=== PATIENT | male | born 1965 | race Caucasian/White ===

== ENCOUNTER → 2017-04-03 | Day surgery (SDC) | payer BC ==
[2017-03-12 12:16] VITALS: Ht 172.7 cm; Wt 88.6 kg
--- NOTE | 2017-03-13 12:29 | PAT Medication Instructions ---
Service Date Mar 13, 2017. Current Home Medication List Hydrochlorothiazide (Hctz), 25 MG PO QAM Ibuprofen (Advil), 800 MG PO BID PRN for Pain Lisinopril (Zestril), 5 MG PO QAM Oxycodone/Acetaminophen 5MG/325MG (Percocet 5MG/325MG), 1-2 TAB PO Q4H PRN for PAIN PER SCALE Medication Instructions For Your Scheduled Surgery - Check with surgeon for instructions: Ibuprofen (Advil), 800 MG PO BID PRN for Pain - Hold the following medications the morning of surgery: Lisinopril (Zestril), 5 MG PO QAM Hydrochlorothiazide (Hctz), 25 MG PO QAM - Take the following medications the morning of surgery with a sip of water: Oxycodone/Acetaminophen 5MG/325MG (Percocet 5MG/325MG), 1-2 TAB PO Q4H PRN for PAIN PER SCALE (okay to take up to 4 hours prior to surgery if needed) - Take the following medications as scheduled the night before surgery: Oxycodone/Acetaminophen 5MG/325MG (Percocet 5MG/325MG), 1-2 TAB PO Q4H PRN for PAIN PER SCALE (if needed) If you have any questions please call us at [phone] or [phone] or [phone]
[2017-03-13 12:57] LABS: HEMATOCRIT 47.4 % (42-52); MEAN CELL VOLUME 87.8 fL (80-100); MEAN CORPUSCULAR HEMOGLOBIN 31.5 pg (25-34); MEAN CORPUSCULAR HGB CONC 35.9 g/dl (32-36); MEAN PLATELET VOLUME 10.3 fL (7.4-10.4); PLATELET COUNT 210 K/uL (130-400); WHITE BLOOD COUNT 4.86 K/uL (4.8-10.8)
[2017-03-13 13:07] LABS: PARTIAL THROMBOPLASTIN RATIO 1.1; PROTHROMBIN TIME (PATIENT) 10.8 SECONDS (9.0-12.0)
[2017-03-13 14:16] LABS: BUN/CREATININE RATIO 12.5 (10-20); CALCIUM 9.7 mg/dl (8.5-10.1); CREATININE 1.1 mg/dl (0.60-1.40); POTASSIUM 4.2 mmol/L (3.5-5.1)
[~2017-04-03] VITALS: Ht 172.7 cm; Wt 88.6 kg
[~2017-04-03] MED LIST: ACETAMINOPHEN 1000 MG/100 ML IV IV ONE; ATROPINE SULFATE 0.1 MG/ML 5ML SYR IV PRN; BUPIVACAINE/EPINEPHRINE 0.25% 10 ML VIAL ONE; CEFAZOLIN 2000 MG/60 ML D5W IV SCH; DEXAMETHASONE SOD INJ 4 MG/ML VIAL ONE; EpHEDrine SULFATE INJ 50 MG/ML AMP IV PRN; EpINEphrine INJ 1MG/ML AMP 1 MG/ML AMP ONE; FENTANYL CITRATE INJ 50 MCG/1 ML 2 ML VIAL IV PRN; FENTANYL CITRATE INJ 50 MCG/1 ML 2 ML VIAL ONE; HYDR25TA4 PO; HYDROmorphone INJ 1 MG/ML SYR IV PRN; IBUP-1050 PO; KETO10TA PO; LACTATED RINGER'S 1000ML 1,000 ML IV SCH; LIDOCAINE HCL 1% MPF 2 ML VIAL ONE; LIDOCAINE HCL 2% 2 ML VIAL (20MG/ML) ONE; LISI-729 PO; MIDAZOLAM HCL 1 MG/ML 2ML VIAL ONE; ONDANSETRON INJ 2 MG/ML 2 ML VIAL IV PRN; ONDANSETRON INJ 2 MG/ML 2 ML VIAL ONE; OXYC-57 PO; OXYCODONE/ACETAMINOPHEN 5-325 TAB PO PRN; PROMETHAZINE HCL INJ 12.5 MG in SODIUM CHLORIDE 0.9% 50ML 50 ML IV PRN; PROPOFOL IV EMULSION 10 MG/ML 20 ML VIAL IV ONE; ROPIVACAINE 0.5% 5 MG/ML 30 ML VIAL ONE; SODIUM CHLORIDE 0.9% 1000ML 1,000 ML IV SCH
--- NOTE | 2017-04-03 09:43 | History & Physical Bridge - SC ---
H&P Re-Evaluation Bridge Note: I have examined the patient, reviewed the History & Physical and in the interval since the performance of the History & Physical I have noted the following changes of clinical significance: No changes noted
--- NOTE | 2017-04-03 14:39 | Discharge Instructions-SurgCtr ---
Discharge Instructions Date of Service Apr 03, 2017. Visit Reason for Visit: Right Shoulder Chronic Rotator Cuff Tear Discharge Discharge Diagnosis / Problem: SAME ABOVE Discharge Goals Goal(s): Decrease discomfort, Improve function Medications Stopped Medications Name(s): no blood thinners Restart Stopped Medication(s): MAY RESTART ANY BLOOD THINNER 04/03/2017 Activity Recommendations Activity Limitations: as noted below Lifting Limitations: until after follow-up appointment Exercise/Sports Limitations: until after follow-up appointment Shower/Bathe: tomorrow Anesthesia . Post Anesthesia Instructions: If you have had General Anesthesia or IV Sedation: * Do not drive today. * Resume driving when surgeon permits. * Do not make important decisions or sign legal documents today. * Call surgeon for: 1. Temperature elevations greater than 101 degrees F. 2. Uncontrollable pain. 3. Excessive bleeding. 4. Persistent nausea and vomiting. 5. Medication intolerance (nausea, vomiting or rash). * For nausea and vomiting use only clear liquids such as: tea, soda, bouillon until nausea subsides, then gradually increase diet as tolerated. * If you have any concerns or questions, call your surgeon's office. If physician is unavailable and it is an emergency, call 911 or go to the nearest emergency room. . Instructions / Follow-Up Instructions / Follow-Up MEDICATIONS: * Resume previous medications unless instructed otherwise by your surgeon. * Always take pain medication on a full stomach or with food to avoid upset stomach. * Do not drink alcohol or drive while taking narcotics. * Ibuprofen or Tylenol may be taken if narcotic not needed. SPECIAL CARE INSTRUCTIONS: __ None _X_ Keep extremity elevated and iced x 48 hours; apply ice 20-30 minutes 8-10 times/day. May remove at night. __ Sling __24 hrs/day __ Remove at night _X_ Shoulder Immobilizer (MAY REMOVE AFTER 48 HOURS ONLY TO SHOWER AND FOR THERAPY) _X_ 24 hrs/day __ Remove at night _X_ Dressing __ Maintain until seen in office, may shower with plastic over site _X_ Remove dressings in 24-48 hours and then may shower _X_ Cover incisions with band-aids after showering __ Do not remove steri-strips Call physician if chills or temperature rises above 102 degrees or pain unrelieved by prescribed pain medications at . . Diet Recommendations Home Diet: no limitations Fluid Restriction: None Procedures Procedures Performed: Right Shoulder Arthroscopy With Superior Capsular Reconstruction, Acromioplasty Pending Studies Studies pending at discharge: no Work Instructions Return To Work: after follow-up Lifting Limitations: NO LIFTING WITH RIGHT ARM Medical Emergencies . Who to Call and When: Medical Emergencies: If at any time you feel your situation is an emergency, please call 911 immediately. . Non-Emergent Contact Non-Emergency issues call your: Primary Care Provider Call Non-Emergent contact if: you have a fever, temperature is above 101.5 . . "Provider Documentation" section prepared by Gael Sosa. .
--- NOTE | 2017-04-03 14:41 | OPERATIVE REPORT ---
DATE OF OPERATION: 04/03/2017 PREOPERATIVE DIAGNOSIS: Irreparable right rotator cuff tear. POSTOPERATIVE DIAGNOSIS: Same. PROCEDURE: Right shoulder diagnostic arthroscopy with extensive debridement, acromioplasty and superior capsular reconstruction. SURGEON: Dr. Anand Enriquez. MANAGER CENTER: Edd Sosa PA-C, whose assistance was necessary for positioning the arm and helping with instrumentation. ANESTHESIA: General with a right interscalene nerve block. COMPLICATIONS: None. CONDITION: Stable to PACU. This case took increased time from a regular rotator cuff repair type case. I did do a complete superior capsular reconstruction. It took me more than twice as long as a rotator cuff repair. All scarring from previous surgery had to be removed as well. INDICATIONS: Sedrick is a pleasant 52-year-old male who had a rotator cuff repair over 10 years ago. He recently fell and sustained an injury to his right shoulder. He underwent an attempted revision rotator cuff repair at an outside institution about 6 months ago. That physician said he was unable to repair the cuff. He then presented to my office for a second opinion. I offered him a superior capsular reconstruction. Given his age, he elected to proceed with the procedure. DESCRIPTION OF PROCEDURE: On 04/03/2017, he arrived at [facility] for the above procedures. He was seen in the preoperative holding area and the operative extremity was identified and signed. He was given a preoperative antibiotic and a right interscalene nerve block. He was taken back to the operating room, laid on the table in supine position and put under general anesthesia. He was then put into the beachchair position. The right shoulder was prepped and draped in sterile fashion. Time-out was done and the patient and operative extremity was properly identified. A scope was introduced into the posterior portal. Diagnostic arthroscopy showed minor cartilage damage to the superior aspect of the humeral head. The glenoid looked okay. There was a little fraying of the labrum. The biceps tendon was absent from previous arthroscopy. There was a large tear of the rotator cuff. The scope was then put into the subacromial space. A lateral portal was made. A shaver was used to do a complete subacromial and subdeltoid bursectomy. There was what appeared to be an incomplete acromioplasty from previous procedure. There was still a large subacromial spur in the anterior medial aspect. Bur was used to complete an acromioplasty. Time was spent then removing all bursal tissue and really get a good look at the rotator cuff. An attempt was made at a repair, but I was unable to bring it down to the footprint. At this point, I decided to do a superior capsular reconstruction. Significant time was spent doing extensive debridement, debriding all scar tissue from the previous 2 procedures. Scar tissue was removed from the subacromial and subdeltoid spaces. The superior aspect of the glenoid was then exposed. A ring curet was used to debride the tissue back to bleeding bone. Two 3.0-mm SutureTaks were placed along the glenoid margin. Two 4.75-mm BioComposite SwiveLock suture anchors loaded with FiberTapes were placed at the articular margin on the greater tuberosity. Distance between anchors was then measured and an ArthroFlex graft was then measured and cut. A PassPort cannula was then used laterally. All sutures were passed out through the PassPort cannula and then through the graft. The graft was then slid into position on the glenoid. The glenoid sutures were then tied and cut. The FiberTapes were then brought down the 2 lateral row SwiveLock suture anchors. This gave a knotless SpeedBridge configuration on the lateral side. The graft was under good tension and multiple pictures were taken. Two margin convergence sutures were placed between the graft and the infraspinatus at the lateral aspect. The arm was brought through a full range of motion and I was happy with the tension and the overall repair. The wound was then irrigated and portal sites were closed with 3-0 nylon. He was then placed in a soft dressing and abduction arm sling. He was then extubated, transferred to a [facility] and taken to the postanesthesia care unit in stable condition. He tolerated the procedure well. I attest to the content of the Intraoperative Record and any orders documented therein. Any exceptions are noted below. KISHORE
[2017-04-03 15:12] VITALS: TEMP 36.1
--- NOTE | 2017-04-03 15:37 | [facility] Post Operative Brief Note ---
Immediate Operative Summary Operative Date Apr 03, 2017. Pre-Operative Diagnosis Post-Operative Diagnosis same Procedure(s) Performed Right Shoulder Arthroscopy With Superior Capsular Reconstruction, Acromioplasty Surgeon Dr. Devin Enriquez Import/Export Clerk Surgeon(s) Edd Sosa PA-C Estimated Blood Loss 20ml Findings as above Specimens NONE PER SURGEON Complication(s) None Disposition Recovery Room / PACU
--- NOTE | 2017-04-03 15:39 | Anesthesia Progress Nt - [facility] ---
Anesthesia Post Op Note Date & Time Apr 03, 2017 at 15:37 Vital Signs Pain Intensity: 0 Vital Signs Past 12 Hours Date Time Temp Pulse Resp B/P (MAP) Pulse Ox O2 Delivery O2 Flow Rate FiO2 04/03/17 15:12 36.1 75 18 144/86 (105) 97 Room Air 04/03/17 15:10 138/88 04/03/17 15:07 71 14 04/03/17 15:07 71 14 96 04/03/17 15:06 36.1 97 Room Air 04/03/17 15:06 77 20 97 04/03/17 15:06 76 20 04/03/17 15:05 140/91 04/03/17 15:01 72 16 100 04/03/17 15:01 73 16 04/03/17 15:00 135/86 04/03/17 14:56 65 13 100 04/03/17 14:56 65 13 04/03/17 14:55 137/85 04/03/17 14:52 68 14 100 04/03/17 14:52 68 14 04/03/17 14:50 139/81 04/03/17 14:47 67 13 04/03/17 14:47 67 13 100 04/03/17 14:45 137/87 04/03/17 14:42 69 14 04/03/17 14:42 69 14 100 04/03/17 14:40 146/92 04/03/17 14:37 70 14 100 04/03/17 14:37 70 14 04/03/17 14:35 156/95 04/03/17 14:32 77 04/03/17 14:32 77 157/99 98 04/03/17 14:32 36.4 75 16 157/99 100 Mask 6 04/03/17 11:17 0 04/03/17 11:17 0 04/03/17 11:12 67 04/03/17 11:12 67 0 100 04/03/17 11:11 66 0 100 04/03/17 11:11 66 04/03/17 11:10 66 0 100 04/03/17 11:10 67 04/03/17 11:06 67 0 100 04/03/17 11:06 65 0 100 04/03/17 11:05 124/76 04/03/17 11:00 139/79 04/03/17 10:56 68 04/03/17 10:56 67 0 100 04/03/17 10:55 135/79 04/03/17 10:51 68 0 99 04/03/17 10:51 67 0 99 04/03/17 10:50 130/77 04/03/17 10:45 132/83 04/03/17 10:41 67 12 99 04/03/17 10:41 68 04/03/17 10:40 69 12 99 04/03/17 10:40 69 04/03/17 10:37 71 04/03/17 10:37 70 8 99 04/03/17 10:35 128/84 04/03/17 10:32 67 10 98 04/03/17 10:32 67 6 99 04/03/17 10:29 136/91 04/03/17 10:22 66 04/03/17 10:22 66 96 04/03/17 09:24 36.8 72 16 137/99 (112) 97 Room Air Notes Mental Status: alert / awake / arousable, participated in evaluation Pt Amnestic to Procedure: Yes Nausea / Vomiting: adequately controlled Pain: adequately controlled Airway Patency, RR, SpO2: stable & adequate BP & HR: stable & adequate Hydration State: stable & adequate Anesthetic Complications: no major complications apparent Doing well. Pain controlled with ISB. VSS
[2017-04-03 15:46] VITALS: BP 138/87; PULSE 73; O2SAT 98
== END | disposition home or self-care (01) ==
LOC: X.SURG 09:05
PROVIDERS: ATTEND Orthopaedic Surgery
DX: S43.421A Sprain of right rotator cuff capsule, initial encounter (principal); W19.XXXA Unspecified fall, initial encounter; I10 Essential (primary) hypertension; Z82.49 Family history of ischemic heart disease and other diseases of the circulatory system; Z82.3 Family history of stroke

== ENCOUNTER 2022-12-20 06:13 | Observation (INO) ==
--- NOTE | 2022-11-13 13:19 | PAT Medication Instructions ---
Medication Instructions Date of Service November 13, 2022 Home Medications hydrochlorothiazide 25 mg tablet 25 mg PO QAM calcium carb-ergocalciferol (vit D2) 600 mg calcium-200 unit tablet 1 tab PO QAM celecoxib 200 mg capsule (Celebrex) 200 mg PO BID PRN Pain lisinopril 10 mg tablet 10 mg PO QAM omega-3 fatty acids 500 mg capsule 500 mg PO QAM rivaroxaban 20 mg tablet (Xarelto) 20 mg PO QAM ASK your surgeon for instructions celecoxib 200 mg capsule (Celebrex) 200 mg PO BID PRN Pain ASK your prescriber and surgeon rivaroxaban 20 mg tablet (Xarelto) 20 mg PO QAM (in order for spinal anesthesia, rivaroxaban/Xarelto needs to be stopped 72 hours/3 days before surgery. Please check if okay with doctor that prescribes this to you) STOP taking 2 weeks before surgery (or as soon as possible if surgery is within 2 weeks) omega-3 fatty acids 500 mg capsule 500 mg PO QAM DO NOT take the morning of surgery hydrochlorothiazide 25 mg tablet 25 mg PO QAM calcium carb-ergocalciferol (vit D2) 600 mg calcium-200 unit tablet 1 tab PO QAM lisinopril 10 mg tablet 10 mg PO QAM Other Notes If you have any questions please call us at [phone] or [phone] or [phone] or [phone]
--- NOTE | 2022-11-19 12:29 | Anesthesiology Consultation ---
Date of Service November 19, 2022 Assessment & Plan (1) Encounter for pre-operative examination: - COVID screening: Per assessment on 11/19: No known COVID-19 positive contacts or current COVID-19 related symptoms. Travel screen negative. At surgeon discretion if preop Covid testing being done. - S/P ACDF C5-T1 with anterior instrumentation (06/28/14): Grade 1 view, MAC#3, ETT 7.5 at [facility] (scope patch used- per patient, denies hx of PONV) - Outpatient joint assessment: Pt currently scheduled for inpatient pathway. If surgeon requests review for outpatient joint pathway, patient is an acceptable candidate for outpatient joint program from anesthesia standpoint pending surgeon's office assessment that patient is motivated, has good support and completes Same Day Joint Program preop requirements. - Xarelto instructions: patient made aware that in order for spinal anesthesia, Xarelto needs to be held 72 hours/3 days prior to surgery. Patient voiced understanding/will check if okay with prescriber. Chart Review Chart Review: Acceptable Risk for Surgery and Patient seen in Pre Admission Testing Teaching & Discussion Pre-Anesthesia Teaching/Discussion Notes: Instructed NPO after midnight before surgery,except medications with 15 cc of water. Medication instructions provided according to the PAT guidelines. History Surgery Operation Date: 12/20/22 10:30 Proposed Procedures p Right Total Knee Arthroplasty - Anand Enriquez DO Height/Weight Height: 5 ft 9 in Weight: 91.9 kg Allergies Allergy/AdvReac Type Severity Reaction Status Date / Time No Known Allergies Allergy Unverified 11/13/22 08:57 Medications Home Medications Medication Instructions Recorded Confirmed Last Taken hydrochlorothiazide 25 mg tablet 25 mg PO QAM 09/29/19 11/13/22 Unknown calcium carb-ergocalciferol (vit 1 tab PO QAM 11/13/22 11/13/22 Unknown D2) 600 mg calcium-200 unit tablet celecoxib 200 mg capsule (Celebrex) 200 mg PO BID PRN Pain 11/13/22 11/13/22 Unknown lisinopril 10 mg tablet 10 mg PO QAM 11/13/22 11/13/22 Unknown omega-3 fatty acids 500 mg capsule 500 mg PO QAM 11/13/22 11/13/22 Unknown rivaroxaban 20 mg tablet (Xarelto) 20 mg PO QAM 11/13/22 11/13/22 Unknown tramadol 50 mg tablet 50 mg PO Q8H PRN pain #30 tabs 11/19/22 11/19/22 Unknown Past Medical History Medical History Back spasm occasional Borderline hyperlipidemia History of COVID-19 07/2021- congestion, headache HTN (hypertension) Hx of deep venous thrombosis right calf (01/2022) taking Xarelto possible lupus anticoagulant Hx of irritable bowel syndrome stress related Knee pain right (hx cortisone injections, most recent 08/2022, Dr. Tarango) Osteoarthritis PMR (polymyalgia rheumatica) follows with Dr. Tarango ([facility]) Exercise / Class Metabolic Activity II 4-5 Yardwork/Stairs/Walk up hill (one FS (no CP, no SOB)) Past Family History Family History Other No family history of adverse response to anesthesia Past Surgical History Surgical History History of surgery on arm perforated artery left forearm, grafted w/ vein from right ankle Hx of anterior cruciate ligament surgery right Hx of cervical discectomy ACDF C5-T1 with anterior instrumentation (06/28/14): Grade 1 view, MAC#3, ETT 7.5 at [facility] (scope patch used) Full ROM per patient Hx of colonoscopy Hx of repair of rotator cuff right X 3 Past Anesthesia History No Hx of Anesthesia Complications Father- "slow to wake", surgery/anesthesia issues r/t kidney disease per patient History of PONV No Hx of PONV and Hx of Motion Sickness Social History Smoking Status: Never smoker Do You Dip or Chew Tobacco: No Hx Alcohol Use: Yes Alcohol type: wine alcohol intake frequency: a few times a week Hx Substance Use: No substance use type: does not use Review of Systems Patient denies chest pain, shortness of breath, dyspnea on exertion, fever, chil ls, cough, wheezing, palpitations. Physical Exam Vital Signs VITALS BP 117/76 P 76 TEMP 98.8 SP02 95%RA RESP 16 PHYSICAL Full cervical extension range of motion. Full TMJ range of motion. TMD 3 finger breaths Mallampati Score 3 Dentition: missing molars Lungs: clear throughout to auscultation Cardiac: regular rate and rhythm, no murmurs noted Spine: normal Carotid arteries: negative bruit Extremities: no edema Lab Results Anesthesia Preop Results Results Anesthesia Widget: WBC 5.69 K/ul (4.8-10.8) 11/19/22 Hgb 16.0 g/dl (14.0-18.0) 11/19/22 Hct 43.8 % (42.0-52.0) 11/19/22 Plt 176 K/uL (130-400) 11/19/22 Na 136 mmol/L (136-145) 11/19/22 K 3.7 mmol/L (3.5-5.1) 11/19/22 Cl 100 mmol/L (98-107) 11/19/22 CO2 30 mmol/L (21-32) 11/19/22 BUN 16 mg/dl (6-23) 11/19/22 Creat 1.04 mg/dl (0.6-1.4) 11/19/22 Glucose Level 87 mg/dl (70-99(Fasting)) 11/19/22 PT 12.4 Seconds (9.0-12.0) H 11/19/22 PTT 37.9 Seconds (21.0-31.0) H 11/19/22 INR 1.2 (0.9-1.1) H 11/19/22 Blood Type O Positive 11/19/22 Antibody Screen NEGATIVE 11/19/22 Testing Laboratory Results Elevated coags- pt taking Xarelto* Electrocardiogram Date: 11/19/22 NSR at 70bpm. Chest X-Ray Date: 11/19/22 FINDINGS: PA and lateral chest radiographs are compared to study dated 06/21/2014. The cardiomediastinal silhouette is unremarkable. The lungs and pleural spaces are clear noting bibasilar scarring/atelectasis. There is no pneumothorax. The skeletal structures are osteopenic. The bony thorax appears intact. Fusion hardware is noted in the lower cervical spine. Arthritic change is noted in the shoulders. IMPRESSION: No active disease in the chest. COVID-19 Risk Screen Screening Information COVID-19 Screen Date: 11/19/22 Exposure 21 Days Family/Household +COVID Last 21 Days: No Exposure 10 Days Any COVID Exposure Last 10 Days: No Symptoms Last 10 Days Experienced COVID Sx Last 10 Days: No + COVID 0-90 Days COVID + in Last 0-90 Days: No
--- NOTE | 2022-12-19 13:20 | History & Physical Report ---
Date of Service December 19, 2022 Assessment & Plan (1) Osteoarthritis, knee: We will proceed with a right total knee arthroplasty. Postoperatively he will be started on Xarelto for DVT prophylaxis and kept overnight in the hospital for postop medical management. He plans to have the hospitalist set up home PT bef ore discharge. History of Present Illness Chief Complaint: Osteoarthritis of the right knee. Primary Care Provider: Lourdes Griffith PA-C Sedrick is a pleasant 57-year-old male who has been dealing with chronic worsening right knee pain. It has been more and more painful. He has had multiple injections. X-rays have shown advanced osteoarthritis of the right knee. After failing conservative treatment, he has elected to proceed with a right total knee arthroplasty. . Allergies Allergy/AdvReac Type Severity Reaction Status Date / Time No Known Allergies Allergy Unverified 11/13/22 08:57 Home Medications Medication Instructions Recorded Confirmed Type hydrochlorothiazide 25 mg tablet 25 mg PO QAM 09/29/19 11/13/22 History calcium carb-ergocalciferol (vit 1 tab PO QAM 11/13/22 11/13/22 History D2) 600 mg calcium-200 unit tablet celecoxib 200 mg capsule (Celebrex) 200 mg PO BID PRN Pain 11/13/22 11/13/22 History lisinopril 10 mg tablet 10 mg PO QAM 11/13/22 11/13/22 History omega-3 fatty acids 500 mg capsule 500 mg PO QAM 11/13/22 11/13/22 History rivaroxaban 20 mg tablet (Xarelto) 20 mg PO QAM 11/13/22 11/13/22 History tramadol 50 mg tablet 50 mg PO Q8H PRN pain #30 tabs 11/19/22 11/19/22 Rx Past Med/Surg History Medical History Back spasm occasional Borderline hyperlipidemia History of COVID-19 07/2021- congestion, headache HTN (hypertension) Hx of deep venous thrombosis right calf (01/2022) taking Xarelto possible lupus anticoagulant Hx of irritable bowel syndrome stress related Knee pain right (hx cortisone injections, most recent 08/2022, Dr. Tarango) Osteoarthritis PMR (polymyalgia rheumatica) follows with Dr. Tarango ([facility]) Surgical History History of surgery on arm perforated artery left forearm, grafted w/ vein from right ankle Hx of anterior cruciate ligament surgery right Hx of cervical discectomy ACDF C5-T1 with anterior instrumentation (06/28/14): Grade 1 view, MAC#3, ETT 7.5 at [facility] (scope patch used) Full ROM per patient Hx of colonoscopy Hx of repair of rotator cuff right X 3 Family History Other No family history of adverse response to anesthesia Social History Smoking Status: Never smoker Second Hand Exposure: No; Do You Dip or Chew Tobacco: No; Hx Alcohol Use: Yes Alcohol type: wine Hx Substance Use: No Preferred Language: Thai Communication Ability: Effective Process Tank Tender Required: No Beliefs That Will Affect Care: None Current Living Situation: Significant Other Current Living Situation Comment: lives w/ sig other Feels Safe at Home: Yes Assistive Devices: Glasses Review of Systems All systems reviewed & are unremarkable except as noted in HPI & below. Physical Exam On physical examination the right knee, he has range of motion 0 to 120 degrees. There is no instability. He has pain of the distal femoral condyles.. Constitutional WD/WN, vitals as above Eyes PERRL, conjunctivae normal, anicteric sclerae ENMT external ear and nose normal, oropharynx normal Neck trachea midline, no thyromegaly Respiratory normal respiratory effort, lungs clear to auscultation Cardiovascular RRR, no murmur, no edema Gastrointestinal (Abdomen) normal bowel sounds, soft, nontender, no hepatosplenomegaly Skin no rashes, warm and dry Psychiatric A+Ox3, euthymic affect Results & Data Results & Data Laboratory Results . Diagnostic Findings X-rays of the right knee show advanced osteoarthritis with joint space narrowing, osteophyte formation, and [id number] articulation. PG Care Time/CCT Total # of Minutes Spent Total Time Spent with Patient: Total time spent is greater than 50% in coordination of care (as documented) at patient's floor/unit and/or counseling patient: Coding Level of Care Code None Diagnoses Osteoarthritis, knee M17.10
[~2022-12-20 06:13] MED LIST changes: -ACETAMINOPHEN 1000 MG/100 ML IV IV ONE; +ACETAMINOPHEN 500 MG TAB PO SCH; -ATROPINE SULFATE 0.1 MG/ML 5ML SYR IV PRN; -BUPIVACAINE/EPINEPHRINE 0.25% 10 ML VIAL ONE; -CEFAZOLIN 2000 MG/60 ML D5W IV SCH; -DEXAMETHASONE SOD INJ 4 MG/ML VIAL ONE; -EpHEDrine SULFATE INJ 50 MG/ML AMP IV PRN; -EpINEphrine INJ 1MG/ML AMP 1 MG/ML AMP ONE; +FAMOTIDINE 20 MG TAB PO SCH; -FENTANYL CITRATE INJ 50 MCG/1 ML 2 ML VIAL IV PRN; -FENTANYL CITRATE INJ 50 MCG/1 ML 2 ML VIAL ONE; +GABAPENTIN 600 MG DOSE PO SCH; -HYDR25TA4 PO; -HYDROmorphone INJ 1 MG/ML SYR IV PRN; -IBUP-1050 PO; -KETO10TA PO; -LACTATED RINGER'S 1000ML 1,000 ML IV SCH; -LIDOCAINE HCL 1% MPF 2 ML VIAL ONE; -LIDOCAINE HCL 2% 2 ML VIAL (20MG/ML) ONE; -LISI-729 PO; +LR 500ML BOLUS, THEN 15ML/HR IV SCH; +LR 60ML/HR IV SCH; -MIDAZOLAM HCL 1 MG/ML 2ML VIAL ONE; -ONDANSETRON INJ 2 MG/ML 2 ML VIAL IV PRN; -ONDANSETRON INJ 2 MG/ML 2 ML VIAL ONE; +ORTHO JOINT MIX INFIL SCH; -OXYC-57 PO; -OXYCODONE/ACETAMINOPHEN 5-325 TAB PO PRN; -PROMETHAZINE HCL INJ 12.5 MG in SODIUM CHLORIDE 0.9% 50ML 50 ML IV PRN; -PROPOFOL IV EMULSION 10 MG/ML 20 ML VIAL IV ONE; -ROPIVACAINE 0.5% 5 MG/ML 30 ML VIAL ONE; -SODIUM CHLORIDE 0.9% 1000ML 1,000 ML IV SCH; +TRANEXAMIC ACID 1,000 MG **IV Intra-op IV SCH; +TRANEXAMIC ACID 1,000 MG **IV Pre-op IV SCH; +ceFAZolin 2000MG 2,000 MG/15 ML SYR IV SCH; +dexAMETHasone 4 MG TAB PO SCH
[2022-12-20] MEDS ORDERED: BUPIVACAINE 0.5 % 5 MG/1 ML PF 10ML VIAL ONE (06:15)
[2022-12-20] MEDS ORDERED: ROPIVACAINE 0.5% 5 MG/ML 30 ML VIAL ONE (06:15)
--- NOTE | 2022-12-20 06:25 | History & Physical Bridge Note ---
Date of Service December 20, 2022 History & Physical Bridge Note I have examined the patient, reviewed the History & Physical and in the interval since the performance of the History & Physical I have noted the following changes of clinical significance: no changes noted
[2022-12-20] MEDS ORDERED: ONDANSETRON INJ 2 MG/ML 2 ML VIAL IV PRN ×2 (06:57→10:56)
[2022-12-20] MEDS ORDERED: fentaNYL citrate PF 100 MCG/2 ML VIAL IV PRN (06:57)
[2022-12-20] MEDS ORDERED: ATROPINE SULFATE 0.1 MG/ML 10ML SYR IV PRN (06:57)
[2022-12-20] MEDS ORDERED: ePHEDrine sulfate 50 MG/ML AMP IV PRN (06:57)
--- NOTE | 2022-12-20 06:57 | Anesthesiology Consultation ---
Date of Service December 20, 2022 Assessment & Plan Chart Review Chart Review: Acceptable Risk for Surgery Consults Requested none ASA ASA2 Proposed Anesthesia Anesthesia Type: MAC Spinal Regional Regional Laterality: Right Site: Adductor Canal Risk / Benefits Reviewed With: PT / POA / Parent / Guardian, Accepts Plan and Informed Consent Obtained History Surgery Operation Date: 12/20/22 08:00 Proposed Procedures p Right Total Knee Arthroplasty - Anand Enriquez, Height/Weight Height: 5 ft 9 in Weight: 89.3 kg Allergies Allergy/AdvReac Type Severity Reaction Status Date / Time No Known Allergies Allergy Verified 12/20/22 06:36 Medications Home Medications Medication Instructions Recorded Confirmed Last Taken hydrochlorothiazide 25 mg tablet 25 mg PO QAM 09/29/19 12/20/22 12/19/22 07:00 calcium carb-ergocalciferol (vit 1 tab PO QAM 11/13/22 12/20/22 12/19/22 07:00 D2) 600 mg calcium-200 unit tablet celecoxib 200 mg capsule (Celebrex) 200 mg PO BID PRN Pain 11/13/22 12/20/22 11/29/22 lisinopril 10 mg tablet 10 mg PO QAM 11/13/22 12/20/22 12/19/22 07:00 omega-3 fatty acids 500 mg capsule 500 mg PO QAM 11/13/22 12/20/22 11/29/22 rivaroxaban 20 mg tablet (Xarelto) 20 mg PO QAM 11/13/22 12/20/22 12/17/22 07:00 tramadol 50 mg tablet 50 mg PO Q8H PRN pain #30 tabs 11/19/22 12/20/22 12/19/22 17:00 Active Medications Generic Name Dose Route Start Last Admin Trade Name Freq PRN Reason Stop Dose Admin Acetaminophen 1,000 mg 12/20/22 06:00 12/20/22 06:55 Acetaminophen 500 Mg Tab PO 12/20/22 18:00 1,000 mg PREOP SHAUNNA Administration Dexamethasone 8 mg 12/20/22 06:00 12/20/22 06:55 Dexamethasone 4 Mg Tab PO 12/20/22 18:00 8 mg PREOP SHAUNNA Administration Famotidine 20 mg 12/20/22 06:00 12/20/22 06:55 Famotidine 20 Mg Tab PO 12/20/22 18:00 20 mg PREOP SHAUNNA Administration Gabapentin 600 mg 12/20/22 06:00 12/20/22 06:55 Gabapentin 600 Mg Dose PO 12/20/22 18:00 600 mg PREOP SHAUNNA Administration Lactated Ringer's 1,000 mls @ 15 mls/hr 12/20/22 06:00 12/20/22 06:54 Lr IV 12/20/22 18:00 15 mls/hr .Q24H SHAUNNA Administration Lactated Ringer's 1,000 mls @ 60 mls/hr 12/20/22 06:00 12/20/22 06:54 Lr IV 12/20/22 22:39 Not Given .[id number] SHAUNNA NPO Date Last Intake of Fluids: 12/19/22 Time Last Intake of Fluids: 22:00 Date Last Intake of Solids: 12/19/22 Time Last Intake of Solids: 20:00 Past Medical History Medical History Back spasm occasional Borderline hyperlipidemia History of COVID-19 07/2021- congestion, headache HTN (hypertension) Hx of deep venous thrombosis right calf (01/2022) taking Xarelto possible lupus anticoagulant Hx of irritable bowel syndrome stress related Knee pain right (hx cortisone injections, most recent 08/2022, Dr. Tarango) Osteoarthritis PMR (polymyalgia rheumatica) follows with Dr. Tarango ([facility]) Exercise / Class Metabolic Activity II 4-5 Yardwork/Stairs/Walk up hill Past Family History Family History Other No family history of adverse response to anesthesia Past Surgical History Surgical History History of surgery on arm perforated artery left forearm, grafted w/ vein from right ankle Hx of anterior cruciate ligament surgery right Hx of cervical discectomy ACDF C5-T1 with anterior instrumentation (06/28/14): Grade 1 view, MAC#3, ETT [address] [facility] (scope patch used) Full ROM per patient Hx of colonoscopy Hx of repair of rotator cuff right X 3 Past Anesthesia History No Hx of Anesthesia Complications and No Family Hx of Anesthesia Complications Father- "slow to wake", surgery/anesthesia issues r/t kidney disease per patient History of PONV No Hx of PONV and No Hx of Motion Sickness Social History Smoking Status: Never smoker Do You Dip or Chew Tobacco: No Hx Alcohol Use: Yes Alcohol type: wine alcohol intake frequency: a few times a week Hx Substance Use: No substance use type: does not use Physical Exam Vital Signs Last Vital Signs Temp 97.9 F 12/20/22 06:39 Pulse 67 12/20/22 06:39 Resp 20 12/20/22 06:39 BP 128/92 12/20/22 06:39 Pulse Ox 96 12/20/22 06:39 O2 Del Method Room Air 12/20/22 06:39 ENMT Mouth: no dentition abnormality Thyromental Distance: > or= 3.5 Finger Breadths Mallampati Class: II Neck normal visual inspection Respiratory normal respiratory effort Auscultation: lungs clear to auscultation bilaterally Cardiovascular Rate/Rhythm: regular rate and regular rhythm Testing Electrocardiogram Date: 11/19/22 NSR at 70bpm. Chest X-Ray Date: 11/19/22 FINDINGS: PA and lateral chest radiographs are compared to study dated 06/21/2014. The cardiomediastinal silhouette is unremarkable. The lungs and pleural spaces are clear noting bibasilar scarring/atelectasis. There is no pneumothorax. The skeletal structures are osteopenic. The bony thorax appears intact. Fusion hardware is noted in the lower cervical spine. Arthritic change is noted in the shoulders. IMPRESSION: No active disease in the chest.
[2022-12-20] MEDS ORDERED: fentaNYL citrate PF 100 MCG/2 ML VIAL ONE (07:19)
[2022-12-20] MEDS ORDERED: LIDOCAINE 2% 2 ML VIAL/AMP(20MG/ML) INFIL ONE (07:19)
[2022-12-20] MEDS ORDERED: MIDAZOLAM HCL 1 MG/ML 2ML VIAL ONE (07:19)
[2022-12-20] MEDS ORDERED: PROPOFOL IV EMULSION 10 MG/ML 20 ML VIAL IV ONE ×2 (07:19→09:37)
[2022-12-20] MEDS ORDERED: ORTHO JOINT ANESTHETIC ONE (07:51)
[2022-12-20] MEDS ORDERED: ePHEDrine sulfate 50 MG/ML AMP ONE (08:28)
--- NOTE | 2022-12-20 09:42 | Operative Report ---
PG Post Operative Report Pre & Post Diagnosis Operation Date: 12/20/22 08:00 Pre-Op Diagnosis: Degenerative Joint Disease Knee Right with retained hardware Post-Op Diagnosis: Degenerative Joint Disease Knee Right with retained hardware I identified the patient and participated in the time-out.: Yes Procedure Operation Date: 12/20/22 08:00 Actual Procedures p Right Total Knee Arthroplasty(Right) with hardware removal- Anand Enriquez DO Surgeon Anand Enriquez DO Chief Cook Anand Kelly PA-C Estimated Blood Loss 30 Findings Consistent with Post-Op Diagnosis Specimens Right femoral and tibial bone Description of Procedure Implants used: I used a Leoncio Persona total knee arthroplasty system with a size 7 standard femur, E tibia, 34 oval patella, and a size 11 medial congruent polyethylene bearing. All components were cemented in place with Biomet cement. Sedrick [facility] for the above procedure. He was seen in the preoperative holding area and the operative extremity was identified and signed. He was given a preoperative antibiotic, TXA, a spinal anesthetic and an adductor nerve block. He was taken back to the operating room and laid on the table in supine position. He was given basic sedation. The operative knee was then prepped and draped in sterile fashion. A timeout was done, and the patient and the operative extremity was properly identified. A midline incision was made directly over the patella. Dissection was taken down to the extensor mechanism. A medial parapatellar arthrotomy was used. The medial retinaculum was released and the fat pad was mostly excised. The knee was flexed and the ACL, PCL, and meniscus were removed. A drill was sent down the center of the femoral canal followed by an intramedullary diaz. Off that diaz a distal femoral cutting block was placed. 9 mm was resected off the distal femur at 5 of valgus. A posterior referencing AP sizing guide was then placed on the distal femur. The femur measured to be a size 7. 2 drill holes were placed in 3 of external rotation. A 4-in-1 cutting block was then impacted into place. Anterior, posterior, and chamfer cuts were then made. The proximal tibia was then exposed. An external tibial alignment guide was placed. A tibial cut guide was then anchored in place and the proximal tibia was then resected. The tibial screw was visualized from the proximal tibial resection. I was able to use a rongeur to clear bone out from around the screw. I was able to remove the screw in retrograde fashion out to the top of the tibial plateau. This completed hardware removal. The posterior aspect of the knee was then opened up and any additional meniscus fragments and osteophytes were removed. The tibia measured to be a size E. The tibial plate was then placed in the appropriate rotation and the tibia was drilled and punched. Trial components were then placed. I used a size 11 medial congruent polyethylene insert. The knee was brought through a full range of motion and felt to be stable. The peg holes for the femoral component were then drilled. The patella was then everted and 9 mm was resected off the posterior aspect of the patella. The patella measured to be a size 34 oval. 3 peg holes were then drilled. A trial patella was placed. The knee was once again brought through a full range of motion and felt to be stable. Trial components were then removed. The surrounding soft tissues were injected with 100 cc of an orthopedic pain control cocktail. All components were then cemented into place with Biomet cement. The final polyethylene insert was then snapped into place. Once cement was dry the tourniquet was deflated. Hemostasis was obtained. A dilute betadyne lavage was then done for 3 minutes. The joint was then irrigated with normal saline solution. The medial parapatellar arthrotomy was then closed with #1 Vicryl suture. The skin was closed with 2-0 Vicryl, 3-0V lock suture, and michi. A soft compressive dressing was placed. He was then transferred to a hospital bed and taken to the postanesthesia care unit in stable condition. He tolerated the procedure well. Anand Kelly PA-C, was present for the entire procedure. He was critical for patient positioning, prepping, draping, retraction exposure, wound closure and application of sterile dressing. I attest to the content of the Intraoperative Record and any orders documented therein. Any exceptions are noted below.
--- NOTE | 2022-12-20 10:30 | XRay Report ---
RIGHT KNEE 2 VIEWS History: Right total knee arthroplasty. Degenerative arthritis. Postop. FINDINGS: The patient is status post a right total knee arthroplasty. The hardware is intact. No frac ture or dislocation. Skin michi are in place. Evidence for prior ACL repair. IMPRESSION: Right total knee arthroplasty. No evidence for hardware complication. ACT 112: Negative or not required by law. Electronically signed by: Pedrito Dietrich M.D. 12/20/2022 10:29 AM
--- NOTE | 2022-12-20 10:49 | Anesthesiology Progress Note ---
Date of Service December 20, 2022 Anesthesia Post Procedure Vital Signs Vital Signs: Temp Pulse Pulse Resp BP Pulse Ox O2 Del Method 12/20/22 10:35 66 19 108/66 100 Room Air 12/20/22 10:25 68 13 118/71 100 Oxymask 12/20/22 10:15 86 17 119/68 100 Oxymask 12/20/22 10:07 97.2 F L 83 20 108/65 98 Oxymask 12/20/22 06:39 97.9 F 67 20 128/92 96 Room Air O2 Flow Rate 12/20/22 10:35 12/20/22 10:25 4 12/20/22 10:15 6 12/20/22 10:07 6 12/20/22 06:39 Pain Intensity Right Knee: Pain Intensity: 1 Transfer of Care Handoff Completed per policy Notes Mental Status: alert / awake / arousable and participated in evaluation Patient Amnestic to Procedure: Yes Nausea / Vomiting: adequately controlled Pain: adequately controlled Airway Patency, RR, SpO2: stable & adequate BP & HR: stable & adequate Hydration State: stable & adequate Neuraxial Anesthesia: was administered and sensory block is resolving Anesthetic Complications: no major complications apparent and Pt Satisfied with anesthetic care
[2022-12-20] MEDS ORDERED: METOCLOPRAMIDE HCL INJ 5 MG/ML 2 ML VIAL IV PRN (10:56)
[2022-12-20] MEDS ORDERED: bisacodyL 10 MG SUPP PR PRN (10:56)
[2022-12-20] MEDS ORDERED: SODIUM CHLORIDE 0.9% 1000ML 1,000 ML IV SCH (10:56)
[2022-12-20] MEDS ORDERED: NALOXONE HCL 0.4 MG/1 ML VIAL/CARP IV PRN (10:56)
[2022-12-20] MEDS ORDERED: MAGNESIUM HYDROXIDE SUSP 30 ML UDC PO PRN (10:56)
[2022-12-20] MEDS: KETOROLAC 30 MG/ML VIAL IV SCH ×3 (11:33→23:30)
[2022-12-20] MEDS: oxyCODONE HCL IR 5 MG TAB (IMMEDIATE RELEASE) PO PRN ×2 (15:50→22:52)
[2022-12-20] MEDS: ceFAZolin 2000MG 2,000 MG/15 ML SYR IV SCH ×2 (15:52→23:29)
[2022-12-20] MEDS: DOCUSATE SODIUM 100 MG CAP PO SCH (20:37)
[2022-12-20] MEDS ORDERED: SENNA 8.6 MG TAB PO SCH (21:00)
[2022-12-21] MEDS: KETOROLAC 30 MG/ML VIAL IV SCH (05:11)
--- NOTE | 2022-12-21 06:55 | Orthopedic Progress Note ---
Date of Service December 21, 2022 Assessment & Plan (1) Status post right knee replacement: Overall he is doing very well. He is not having much pain in the right knee. He will be seen by physical therapy today for ambulation and range of motion exercises. He is on Xarelto for DVT prophylaxis. He can be discharged home later today. He will follow-up with orthopedics in 2 weeks. Daniel Dubose was seen and examined at bedside this morning. Overall he is doing very well. He is not having much pain in the right knee. He has been up and ambulating around the nurses station. He has no complaints.. Review of Systems All systems reviewed & are unremarkable except as noted in HPI & below. Physical Exam On physical examination of the right knee, the dressing is clean and dry. His leg is out full extension. He has active dorsiflexion plantarflexion of the right ankle.. Results & Data Results & Data Laboratory Results . Diagnostic Findings Postoperative x-rays of the right knee show the prosthesis to be in anatomic alignment without any evidence of fracture, screws, or loosening.. PG Care Time/CCT Total # of Minutes Spent Total Time Spent with Patient: Total time spent is greater than 50% in coordination of care (as documented) at patient's floor/unit and/or counseling patient: Coding Level of Care Code 03786 Post Operative Follow-Up Diagnoses Status post right knee replacement Z96.651
--- NOTE | 2022-12-21 06:56 | Discharge Summary ---
Date of Service December 21, 2022 Admission HPI (Per Admitting) Sedrick is a pleasant 57-year-old male who has been dealing with chronic worsening right knee pain. It has been more and more painful. He has had multiple injections. X-rays have shown advanced osteoarthritis of the right knee. After failing conservative treatment, he has elected to proceed with a right total knee arthroplasty. . Admission Exam (Per Admitting) On physical examination the right knee, he has range of motion 0 to 120 degrees. There is no instability. He has pain of the distal femoral condyles.. Principal Diagnosis Same as "Discharge Diagnosis" noted below under Discharge Instructions. Discharge Exam On physical examination of the right knee, the dressing is clean and dry. His leg is out full extension. He has active dorsiflexion plantarflexion of the right ankle.. Discharge Data Procedures Performed Operation Date: 12/20/22 08:00 Actual Procedures p Right Total Knee Arthroplasty(Right) - Anand Enriquez DO Ordered Studies 12/20/22 05:00 US - OR guided needle placemen Routine Hospital Course (1) Status post right knee replacement: On December 20, 2022 Sedrick arrived at [facility] and underwent a right knee replacement without complication. He had a spinal anesthetic. Postoperatively he was started on Xarelto for DVT prophylaxis and transferred to the general orthopedic floors. His hospital course was uneventful. On postop day #1, his vital signs were stable and his pain was well controlled. He was able to participate well with physical therapy doing ambulation and range of motion exercises. He was then discharged home. He will follow-up with orthopedics in 2 weeks. PG Care Time/CCT Total # of Minutes Spent Total Time Spent with Patient: Total time spent is greater than 50% in coordination of care (as documented) at patient's floor/unit and/or counseling patient: Discharge Plan Discharge Items Patient Disposition: Home - Home Health Services Reason For Visit: DJD Knee Right Discharge Diagnosis: Right knee replacement Activity: Per Instructions section Non-emergency contact: Surgeon Call non-emergency contact if: your wound has increased redness and your wound has increased drainage Follow-up/Referrals: Lourdes Griffith PA-C [Primary Care Provider] - Diet: Regular Addtl Attending Provider Instructions: Activity and Therapy Recommendations: * If you are using [facility] then therapy will be provided at your home until they feel you have accomplished all of your goals. * If you are using [facility] then Physical Therapy will be provided until they feel you are ready to start Outpatient Physical Therapy. * If you are not using home therapy then Outpatient Physical Therapy should start about 3-5 days from your day of surgery. Therapy will last about 6-10 weeks * It is important not to put a pillow under your knee when you are relaxing or sleeping. It is just as important to make sure you are getting your knee perfectly straight as it is to regain your knee bend. * You were shown a series of exercises in the hospital. Do these exercises three times each day including the exercises you were shown in physical therapy. * Get up and walk several times each day. For the first four weeks, try not to stand or walk for more than one hour at a time. If you do stand or walk for more than one hour, you will not hurt anything, but your leg will likely swell. * As you feel comfortable, you may change from the walker or crutches to a cane and then to independent walking. Medications: * Narcotic You will likely be sent home from the hospital with a prescription for the narcotic pain medication that worked best throughout your stay. * Take Xarelto 10 mg for 2 weeks, then may resume 20 mg dosage. * Other medications may be prescribed for specific circumstances. If you have any questions, please call the office at . * Resume previous home medications unless otherwise instructed TEDs/Elastic Stockings: The white elastic stockings help limit swelling and prevent blood clots from forming in your legs.~ The more you wear them, the more they work. Wear them for six weeks. Dressing Care: The dressing can be changed after physical therapy on postop day #1. Daily dry dressing changes for a few days, especially if the incision is still draining some. If the incision is not draining then you may leave the michi open to air. If there is a little bit of drainage or if the michi are getting stuck on your clothing then cover the incision with a dry dressing. The michi will be removed at your 2 week follow-up appointment. Showering: You may shower 5 days from the day of surgery as long as the incision is no longer draining. You may shower with the michi exposed. Let soapy water run over the michi and pat them dry. Do not scrub or soak the incision. Things To Watch For: * Drainage from the incision site that occurs more than one week after your surgery. * Increased redness at the incision site. * Fever above 102 degrees Fahrenheit. * Unusual chest pain or shortness of breath. * Call [facility] at with any of the above problems Follow-Up Visit: Follow-up with Dr. Enriquez's PA (Anand Kelly) 2-3 weeks after your day of surgery. He will remove your michi and answer any questions. If you have any additional questions or concerns, Dr Enriquez is usually in the office at the same time and will be available An appointment was probably scheduled when you signed-up for surgery in the office. If you have any questions call Office Instructions: More detailed instructions as well as Frequently Asked Questions were provided in a folder by our office when you signed-up for surgery. Please review these instructions when you get home. If you have any further questions or concerns, please feel free to call the office at [phone] Pending Studies at Discharge: No Stand-Alone Forms: My [facility], Smoking Cessation Medications and DC Order Prescriptions: New oxycodone-acetaminophen 5-325 mg tablet 1 tab PO Q6H PRN (Reason: pain) Qty: 30 0RF Xarelto 10 mg tablet 10 mg PO DAILY 14 Days Qty: 14 0RF Continued tramadol 50 mg tablet 50 mg PO Q8H PRN (Reason: pain) Qty: 30 0RF hydrochlorothiazide 25 mg tablet 25 mg PO QAM celecoxib [Celebrex] 200 mg Capsule 200 mg PO BID PRN (Reason: Pain) lisinopril 10 mg Tablet 10 mg PO QAM Calcium + Vitamin D 600 mg calcium- 200 unit Tablet 1 tab PO QAM Fish Oil 500 mg Capsule 500 mg PO QAM Held Xarelto 20 mg Tablet 20 mg PO QAM Hold Instructions: Resume on 01/04/23. Rx Instructions: must administer with evening meal Admission Data Admit Date/Time: 12/20/22 10:07 Attending Provider: Anand Enriquez Admit Provider: Anand Enriquez Primary Care Provider: Lourdes Griffith
[2022-12-21] MEDS ORDERED: dexAMETHasone 4 MG TAB PO SCH (08:00)
[2022-12-21] MEDS: DOCUSATE SODIUM 100 MG CAP PO SCH (08:16)
[2022-12-21] MEDS ORDERED: lisinopril 10 MG TAB PO SCH (09:00)
[2022-12-21] MEDS ORDERED: hydroCHLOROthiazide 25 MG TAB PO SCH (09:00)
[2022-12-21] MEDS ORDERED: MULTIVITAMIN TAB PO SCH (09:00)
[2022-12-21] MEDS: oxyCODONE HCL IR 5 MG TAB (IMMEDIATE RELEASE) PO PRN (10:05)
[2022-12-21] MEDS ORDERED: RIVAROXABAN 20 MG TAB PO SCH (16:30)
== END 2022-12-21 10:37 | disposition home or self-care (01) ==
LOC: 3E 06:13 → ASU 06:13